=== PATIENT | male | born 1985 | race African-American/Black ===

== ENCOUNTER 2017-06-18 15:05 | Emergency (ER) | payer SELFPAY ==
[~2017-06-18] VITALS: Ht 190.5 cm; Wt 78.0 kg
[2017-06-18 17:10] LABS: CLARITY URINE CLEAR (CLEAR); COLOR URINE YELLOW (YELLOW); KETONES URINE NEGATIVE (NEGATIVE); LEUKOCYTE ESTERASE URINE TRACE (NEGATIVE); NITRITE URINE NEGATIVE (NEGATIVE); OCCULT BLOOD URINE NEGATIVE (NEGATIVE); PH URINE 6.5 (4.5-8.0); PROTEIN URINE NEGATIVE (NEGATIVE); SPECIFIC GRAVITY URINE 1.024 (1.005-1.030)
[2017-06-18] MEDS ORDERED: ACETAMINOPHEN 325MG TABLET PO ONE (17:30)
[2017-06-18 19:30] VITALS: BP 115/49
== END 2017-06-18 19:55 | disposition home or self-care (01) ==
LOC: ER 15:38
DX: S20.212A Contusion of left front wall of thorax, initial encounter (principal); F12.10 Cannabis abuse, uncomplicated; X58.XXXA Exposure to other specified factors, initial encounter; Y93.89 Activity, other specified; Y92.89 Other specified places as the place of occurrence of the external cause; Y99.8 Other external cause status
CPT/HCPCS: 71010; 81001; 99285

== ENCOUNTER 2017-11-09 17:48 | Emergency (ER) | payer SELFPAY ==
[~2017-11-09] VITALS: Ht 190.5 cm; Wt 89.0 kg
[2017-11-09 17:53] VITALS: BP 132/69
== END 2017-11-09 21:30 | disposition left against medical advice (07) ==
LOC: ER 17:48
DX: R10.12 Left upper quadrant pain (principal)
CPT/HCPCS: 99281